=== PATIENT | female | born 1970 | race Asian ===

== ENCOUNTER 2016-03-26 11:39 | Day surgery (SDC) | payer OTHER ==
[2016-03-25 17:12] VITALS: BMI 27.4
[2016-03-26] MEDS ORDERED: LIDOCAINE 1%/EPI 1:100000 (50 ML MULTI DOSE VIAL) ONE (13:45)
[2016-03-26] MEDS ORDERED: LIDOCAINE HCL 1%, 10 MG/ML (20ML VIAL) ONE (13:45)
[2016-03-26] MEDS ORDERED: MIDAZOLAM HCL 2 MG/2 ML SINGLE DOSE VIAL ONE ×2 (14:30→14:33)
[2016-03-26] MEDS ORDERED: PROPOFOL 20 ML ONE (14:43)
[2016-03-26] MEDS ORDERED: SUCCINYLCHOLINE CHLORIDE 200 MG/10 ML VIAL ONE (14:43)
[2016-03-26] MEDS ORDERED: LIDOCAINE HCL 1%, 10 MG/ML (20ML VIAL) IJ ONE (14:44)
[2016-03-26] MEDS ORDERED: oxyCODONE HCL 5 MG TABLET PO PRN (15:17)
[2016-03-26] MEDS ORDERED: ONDANSETRON 4 MG/2 ML VIAL IVPUSH PRN (15:17)
[2016-03-26] MEDS ORDERED: IBUPROFEN 800 MG/8 ML IJ IVPB PRN (15:17)
[2016-03-26] MEDS ORDERED: LACTATED RINGERS SOLUTION 1,000 ML IV SCH (15:30)
--- NOTE | 2016-03-26 15:36 | HP ---
History & Physical Update - History History: No Change - Physical Physical: No Change - Assessment Assessment: No Change - Plan Plan: No Change
--- NOTE | 2016-03-26 15:39 | OP ---
Operative Note - Note: Operative Date: 03/26/16 Pre-Operative Diagnosis: 6 cm. soft tissue tumor right arm. Operation: Excision of 6cm soft tissue tumor on right arm, deep to the deep fascia. 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 Post-Operative Diagnosis: Same as Pre-op Surgeon: Nahed Butterfield Anesthesiologist/REAMING PRESS OPERATOR: Sosa Barkley Anesthesia: Local, MAC Specimens Removed: Soft tissue tumor right arm. Estimated Blood Loss (mls): 5 Operative Report Dictated: Yes
[2016-03-26 16:17] VITALS: TEMP 98.5
[2016-03-26 17:32] VITALS: BP 133/89; PULSE 88
--- NOTE | 2016-03-27 07:58 | OP ---
DATE OF OPERATION: 03/26/2016 PREOPERATIVE DIAGNOSIS: Large soft tissue tumor on the lateral aspect of the right arm. POSTOPERATIVE DIAGNOSIS: A 6-cm diameter soft tissue tumor on the right arm, deep to the deep fascia. OPERATIVE PROCEDURE: Excision of 6-cm soft tissue tumor on the right arm, deep to the deep fascia. SURGEON: Tres Butterfield MD ANESTHESIA: Local with monitored intravenous sedation. ANESTHESIOLOGIST: Sosa Barkley MD OPERATIVE DESCRIPTION: This 46-year-old woman had a large mass on the lateral aspect of her right arm. This was quite firm and quite large, measuring about 6 cm in length. The lesion was identified with a marker. Patient brought to the operating room. Given intravenous sedation. The right arm was painted and draped. Lidocaine 1% with Marcaine was injected around the lesion. A longitudinal incision 6 cm in length was made overlying the lesion. The incision was deepened through the skin, subcutaneous tissue, and the deep fascia. A lobulated mass was then identified, encapsulated, from the rest of the structures. This was then completely excised from its surrounding structures and sent to Pathology. Hemostasis was achieved. The wound was irrigated. The deep fascia was approximated with buried interrupted 3-0 Vicryl sutures and skin approximated with continuous 4-0 Monocryl sutures in a running subcuticular fashion. A pressure dressing was applied. Estimated blood loss was 5 mL. Patient tolerated the procedure well, was extubated, and sent to the recovery room in satisfactory and stable condition. Jon REEDER/[id number] cc: Toya Ramírez MD MTDD
--- NOTE | 2016-03-30 12:44 | PATH ---
Surgical Pathology Report Patient Name: MAURICIO BRUNNER [facility]. Rec. #: [id number] /Age/Gender: 1970 (Age: 46) / F Account: [id number] Location: [facility] SURGICAL Taken: 03/26/2016 Received: 03/29/2016 Reported: 03/30/2016 Physicians: Tres Butterfield M.D. 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 Electronically Signed Jones Devries M.D. Gross Description Received in formalin, labeled "soft tissue mass right arm" is a 4.8 x 3.5 x 2.5 cm portion of yellow, lobulated adipose tissue. Sectioning reveals homogeneous yellow, smooth fat. No areas of hemorrhage or necrosis are identified. Criminal [employer]igator [employer] sections are submitted in 2 cassettes. /03/29/2016 [facility]03/29/2016
== END 2016-03-26 17:32 | disposition home or self-care (01) ==
LOC: JASU-SURG 11:39 → EDBD 11:39 → JASU-SURG 17:32
PROVIDERS: ATTEND Specialist
PROC: 0JBF0ZX Excision of Left Upper Arm Subcutaneous Tissue and Fascia, Open Approach, Diagnostic (ICD-10-PCS; principal; 2016-03-26 13:00)
DX: D17.21 Benign lipomatous neoplasm of skin and subcutaneous tissue of right arm (principal)
CPT/HCPCS: 88304-TC; 94760